=== PATIENT | female | born 1940 | race Caucasian/White ===

== ENCOUNTER → 2016-06-20 | Outpatient (CLI) | payer MEDICARE ==
[~2016-06-20] MED LIST: CALCIUM + D 6001 TAB PO; FOSAMAX70 MG PO; HCTZ 25MG25 MG PO; HUMALOG 75/2100 U/ML SQ; KEPPRA250 MG PO; KEPPRA500 MG PO; LEVOTHYROXINE0.05 MG PO; LOW DOSE ASPIRI81 MG PO; LUTEIN20 M2 PO; MOBIC7.5 M1 PO; OSTEO BI-FLEX1 TAB PO; PIOGLITAZONE HC30 MG PO; PRECOSE PO; PRECOSE50 M1 PO; RITALIN LA10 MG PO; TESSALON PERLE200 MG PO; TYLENOL 500MG500 MG PO; ULTRAM 50MG TAB50 MG PO
[2016-06-20 09:10] VITALS: BP 131/77
== END ==
LOC: AMSURD 08:55
DX: Z01.810 Encounter for preprocedural cardiovascular examination (principal); M51.36 Other intervertebral disc degeneration, lumbar region; I10 Essential (primary) hypertension

== ENCOUNTER → 2016-06-21 | Outpatient (CLI) | payer MEDICARE | LOC: LAB 10:12 | DX: Z01.812 Encounter for preprocedural laboratory examination (principal); I10 Essential (primary) hypertension; M51.36 Other intervertebral disc degeneration, lumbar region ==

== ENCOUNTER 2016-07-09 02:09 | Emergency (ER) | payer MEDICARE ==
[~2016-07-09 02:09] MED LIST changes: -PIOGLITAZONE HC30 MG PO; -PRECOSE PO; -ULTRAM 50MG TAB50 MG PO
[2016-07-09] MEDS ORDERED: ULTRAM 50MG TAB50 MG PO (02:31)
[2016-07-10] MEDS ORDERED: PRECOSE PO (13:02)
== END 2016-07-09 04:06 | disposition home or self-care (01) ==
LOC: ED 02:09
DX: G40.209 Localization-related (focal) (partial) symptomatic epilepsy and epileptic syndromes with complex partial seizures, not intractable, without status epilepticus (principal)
CPT/HCPCS: J2060; J2405

== ENCOUNTER 2016-07-10 12:38 | Emergency (ER) | payer MEDICARE ==
[~2016-07-10 12:38] MED LIST changes: +ULTRAM 50MG TAB50 MG PO
[2016-07-10] MEDS ORDERED: PRECOSE PO (13:02)
[2016-07-10 17:17] VITALS: BP 135/59
== END 2016-07-10 16:27 | disposition short-term general hospital (02) ==
LOC: ED 12:38
DX: E87.1 Hypo-osmolality and hyponatremia (principal); I95.1 Orthostatic hypotension; E11.9 Type 2 diabetes mellitus without complications; G40.909 Epilepsy, unspecified, not intractable, without status epilepticus
CPT/HCPCS: A4353; J1885; J2405; J7030

== ENCOUNTER 2016-07-15 12:31 | Inpatient (IN) | payer MEDICARE ==
[~2016-07-15 12:31] MED LIST changes: +PRECOSE PO
[2016-07-15 15:24] VITALS: BP 150/68
[2016-07-15 18:43] VITALS: BP 153/69
[2016-07-16 06:21] VITALS: BP 158/71
[2016-07-16 18:30] VITALS: BP 132/52
[2016-07-17 06:24] VITALS: BP 130/24
[2016-07-17] MEDS ORDERED: KEPPRA250 MG PO (09:57)
[2016-07-17] MEDS ORDERED: PIOGLITAZONE HC30 MG PO (12:04)
== END 2016-07-17 12:30 | disposition home or self-care (01) | DRG 948 ==
LOC: MED/SURG 12:31
PROVIDERS: ADMIT Medical Genetics Clinical Genetics (M.D.)
DX: R53.1 Weakness (principal); E87.1 Hypo-osmolality and hyponatremia; J00 Acute nasopharyngitis [common cold]; M51.36 Other intervertebral disc degeneration, lumbar region; G40.909 Epilepsy, unspecified, not intractable, without status epilepticus; M81.0 Age-related osteoporosis without current pathological fracture; G47.33 Obstructive sleep apnea (adult) (pediatric); E11.9 Type 2 diabetes mellitus without complications; E78.5 Hyperlipidemia, unspecified; I10 Essential (primary) hypertension; E03.9 Hypothyroidism, unspecified; B97.29 Other coronavirus as the cause of diseases classified elsewhere; Z79.4 Long term (current) use of insulin; Z79.82 Long term (current) use of aspirin
CPT/HCPCS: J1650; J1815

== ENCOUNTER 2016-07-22 12:53 | Outpatient (RCR) | payer MEDICARE ==
[~2016-07-22 12:53] MED LIST changes: +PIOGLITAZONE HC30 MG PO
== END 2016-08-07 10:29 | disposition home or self-care (01) ==
LOC: PT 12:53
DX: M51.36 Other intervertebral disc degeneration, lumbar region (principal)

== ENCOUNTER → 2016-08-16 | Outpatient (CLI) | payer MEDICARE ==
[2016-08-16 10:05] VITALS: BP 160/70
== END ==
LOC: AMSURD 09:30
DX: Z01.818 Encounter for other preprocedural examination (principal); I10 Essential (primary) hypertension; M51.36 Other intervertebral disc degeneration, lumbar region

== ENCOUNTER → 2016-08-27 | Outpatient (CLI) | payer MEDICARE | LOC: LAB 08:36 | DX: E78.2 Mixed hyperlipidemia (principal) ==

== ENCOUNTER → 2016-10-16 | Outpatient (CLI) | payer MEDICARE ==
[2016-08-16 10:05] VITALS: BP 160/70
== END ==
LOC: LAB 10:51
DX: E11.9 Type 2 diabetes mellitus without complications (principal); E87.1 Hypo-osmolality and hyponatremia

== ENCOUNTER → 2016-11-20 | Outpatient (CLI) | payer MEDICARE, BC ==
[2016-08-16 10:05] VITALS: BP 160/70
== END ==
LOC: LAB 12:00
DX: E87.1 Hypo-osmolality and hyponatremia (principal); I10 Essential (primary) hypertension; R60.9 Edema, unspecified; E11.8 Type 2 diabetes mellitus with unspecified complications

== ENCOUNTER → 2017-03-21 | Outpatient (CLI) | payer MEDICARE, BC ==
[2016-08-16 10:05] VITALS: BP 160/70
== END ==
LOC: LAB 07:35
DX: E11.9 Type 2 diabetes mellitus without complications (principal); Z79.4 Long term (current) use of insulin

== ENCOUNTER → 2017-03-25 | Outpatient (CLI) | payer MEDICARE, BC ==
[2016-08-16 10:05] VITALS: BP 160/70
== END ==
LOC: LAB 15:27
DX: Z00.00 Encounter for general adult medical examination without abnormal findings (principal); E03.4 Atrophy of thyroid (acquired)

== ENCOUNTER → 2017-05-22 | Outpatient (CLI) | payer BC ==
[2016-08-16 10:05] VITALS: BP 160/70
== END ==
LOC: RAD 08:28
DX: Z12.31 Encounter for screening mammogram for malignant neoplasm of breast (principal)
CPT/HCPCS: G0202

== ENCOUNTER → 2017-10-02 | Outpatient (CLI) | payer BC ==
[2016-08-16 10:05] VITALS: BP 160/70
[2017-10-02 09:09] LABS: HEMATOCRIT 35.5 % (37.0-47.0); HEMOGLOBIN 11.7 g/dL (12.5-16.0); MEAN CELL VOLUME 92 fl (78-100); MEAN CORPUSCULAR HEMOGLOBIN 30 pg (27-31); MEAN CORPUSCULAR HGB CONC 33 g/dL (33-37); MEAN PLATELET VOLUME 9.4 fl (7.4-10.4); PLATELET COUNT 221 K/mm3 (130-400); RED BLOOD COUNT 3.87 M/mm3 (4.10-5.30); RED CELL DISTRIBUTION WIDTH 13.8 % (11.5-14.5); WHITE BLOOD COUNT 5.4 K/mm3 (4.8-10.8)
[2017-10-02 09:25] LABS: ALBUMIN 3.9 g/dL (3.5-5.0); CALCIUM 9.5 mg/dL (8.4-10.2); LYMPHOCYTE 35 % (20-51); MONOCYTE 14 % (3-10); NEUTROPHILS 48 % (42-75); POTASSIUM 4.4 mmol/L (3.6-5.0); TOTAL BILIRUBIN 0.4 mg/dL (0.2-1.3); TOTAL PROTEIN 7.5 g/dL (6.3-8.2)
== END ==
LOC: LAB 08:54
PROVIDERS: Nurse Practitioner Family
DX: Z00.00 Encounter for general adult medical examination without abnormal findings (principal); I10 Essential (primary) hypertension; E03.9 Hypothyroidism, unspecified; E11.9 Type 2 diabetes mellitus without complications; E78.5 Hyperlipidemia, unspecified; Z88.2 Allergy status to sulfonamides

== ENCOUNTER → 2017-10-08 | Outpatient (CLI) | payer MEDICARE ==
[2016-08-16 10:05] VITALS: BP 160/70
[2017-10-08 11:41] LABS: EOS # 0.1 (0.04-0.40); EOS % 1.1 % (1.0-5.0); HEMATOCRIT 37.3 % (37.0-47.0); LYMPH# 1.9 (1.50-4.00); MEAN CELL VOLUME 92 fl (78-100); MEAN CORPUSCULAR HEMOGLOBIN 30 pg (27-31); MEAN CORPUSCULAR HGB CONC 32 g/dL (33-37); MEAN PLATELET VOLUME 10.1 fl (7.4-10.4); MONO # 0.7 (0.20-0.80); NEU # 3.8 (1.40-6.50); PLATELET COUNT 226 K/mm3 (130-400); RED BLOOD COUNT 4.04 M/mm3 (4.10-5.30); RED CELL DISTRIBUTION WIDTH 13.8 % (11.5-14.5); WHITE BLOOD COUNT 6.5 K/mm3 (4.8-10.8)
[2017-10-08 12:00] LABS: BUN/CREATININE RATIO 24.2 (6.0-26.0); CALCIUM 9.9 mg/dL (8.4-10.2); POTASSIUM 4.4 mmol/L (3.6-5.0); TOTAL BILIRUBIN 0.3 mg/dL (0.2-1.3); TOTAL PROTEIN 7.7 g/dL (6.3-8.2)
== END ==
LOC: LAB 11:10
PROVIDERS: Nurse Practitioner Family
DX: E11.9 Type 2 diabetes mellitus without complications (principal); R23.2 Flushing; I10 Essential (primary) hypertension; R60.9 Edema, unspecified; Z88.2 Allergy status to sulfonamides

== ENCOUNTER → 2018-01-26 | Outpatient (CLI) | payer MEDICARE ==
[2016-08-16 10:05] VITALS: BP 160/70
== END ==
LOC: RAD 09:11
DX: M46.1 Sacroiliitis, not elsewhere classified (principal); M51.36 Other intervertebral disc degeneration, lumbar region; Z98.1 Arthrodesis status; Z96.7 Presence of other bone and tendon implants

== ENCOUNTER → 2018-06-02 | Outpatient (CLI) | payer BC ==
[2018-02-09 18:35] VITALS: BP 136/61
[~2018-06-02] MED LIST changes: +ZOFRAN ODT4 MG PO
== END ==
LOC: MAMMO 09:58
DX: Z13.820 Encounter for screening for osteoporosis (principal); M81.0 Age-related osteoporosis without current pathological fracture; M85.851 Other specified disorders of bone density and structure, right thigh; M85.832 Other specified disorders of bone density and structure, left forearm

== ENCOUNTER → 2018-06-02 | Outpatient (CLI) | payer BC ==
[2018-02-09 18:35] VITALS: BP 136/61
== END ==
LOC: MAMMO 05-19 10:00
DX: Z12.31 Encounter for screening mammogram for malignant neoplasm of breast (principal)

== ENCOUNTER 2018-08-18 11:00 | Outpatient (RCR) | payer MEDICARE ==
[2018-02-09 18:35] VITALS: BP 136/61
== END 2018-08-18 11:30 | disposition home or self-care (01) ==
LOC: PT 11:00
DX: M51.36 Other intervertebral disc degeneration, lumbar region (principal); M43.16 Spondylolisthesis, lumbar region; M47.816 Spondylosis without myelopathy or radiculopathy, lumbar region; M51.9 Unspecified thoracic, thoracolumbar and lumbosacral intervertebral disc disorder
CPT/HCPCS: G8981-GP; G8982-GP

== ENCOUNTER → 2018-10-07 | Outpatient (CLI) | payer MEDICARE ==
[2018-02-09 18:35] VITALS: BP 136/61
[2018-10-07 08:27] LABS: HEMATOCRIT 35.2 % (37.0-47.0); HEMOGLOBIN 11.5 g/dL (12.5-16.0); MEAN CELL VOLUME 93 fl (78-100); MEAN CORPUSCULAR HEMOGLOBIN 31 pg (27-31); MEAN CORPUSCULAR HGB CONC 33 g/dL (33-37); MEAN PLATELET VOLUME 9.9 fl (7.4-10.4); PLATELET COUNT 257 K/mm3 (130-400); RED BLOOD COUNT 3.77 M/mm3 (4.10-5.30); RED CELL DISTRIBUTION WIDTH 12.7 % (11.5-14.5); WHITE BLOOD COUNT 5.7 K/mm3 (4.8-10.8)
[2018-10-07 09:00] LABS: CALCIUM 9.2 mg/dL (8.4-10.2); TOTAL BILIRUBIN 0.5 mg/dL (0.2-1.3); TOTAL PROTEIN 7.3 g/dL (6.3-8.2)
[2018-10-07 09:10] LABS: LYMPHOCYTE 32 % (20-51); MONOCYTE 13 % (3-10); NEUTROPHILS 50 % (42-75)
== END ==
LOC: LAB 07:23
PROVIDERS: Physician Assistant
DX: M51.36 Other intervertebral disc degeneration, lumbar region (principal); E78.5 Hyperlipidemia, unspecified; E11.9 Type 2 diabetes mellitus without complications; E03.9 Hypothyroidism, unspecified; I10 Essential (primary) hypertension

== ENCOUNTER → 2018-10-15 | Outpatient (CLI) | payer MEDICARE ==
[2018-02-09 18:35] VITALS: BP 136/61
== END ==
LOC: RAD 10:25
DX: R10.9 Unspecified abdominal pain (principal); Z98.1 Arthrodesis status

== ENCOUNTER → 2018-11-19 | Outpatient (CLI) | payer MEDICARE ==
[2018-02-09 18:35] VITALS: BP 136/61
== END ==
LOC: RAD 14:57
DX: Q78.2 Osteopetrosis (principal); M15.9 Polyosteoarthritis, unspecified; M25.551 Pain in right hip; K59.09 Other constipation; G89.29 Other chronic pain; R10.31 Right lower quadrant pain

== ENCOUNTER 2019-02-11 11:00 | Outpatient (RCR) | payer MEDICARE ==
[2018-02-09 18:35] VITALS: BP 136/61
== END 2019-02-11 11:30 ==
LOC: PT 11:00
DX: M96.1 Postlaminectomy syndrome, not elsewhere classified (principal)

== ENCOUNTER → 2019-04-22 | Outpatient (CLI) | payer MEDICARE ==
[2018-02-09 18:35] VITALS: BP 136/61
[2019-04-22 12:41] LABS: ALBUMIN 4.1 g/dL (3.4-4.8)
[2019-04-22 12:44] LABS: TOTAL PROTEIN 7.6 g/dL (6.2-8.1)
[2019-04-22 12:46] LABS: TOTAL BILIRUBIN 0.6 mg/dL (0.2-1.2)
== END ==
LOC: LAB 11:36
PROVIDERS: Physician Assistant
DX: E11.9 Type 2 diabetes mellitus without complications (principal); E78.5 Hyperlipidemia, unspecified; G40.909 Epilepsy, unspecified, not intractable, without status epilepticus; M81.0 Age-related osteoporosis without current pathological fracture; M47.816 Spondylosis without myelopathy or radiculopathy, lumbar region; M43.16 Spondylolisthesis, lumbar region; I10 Essential (primary) hypertension; E03.9 Hypothyroidism, unspecified

== ENCOUNTER → 2019-06-03 | Outpatient (CLI) | payer MEDICARE ==
[2018-02-09 18:35] VITALS: BP 136/61
== END ==
LOC: MAMMO 09:54
DX: Z12.31 Encounter for screening mammogram for malignant neoplasm of breast (principal)

== ENCOUNTER → 2019-11-05 | Outpatient (CLI) | payer MEDICARE ==
[2018-02-09 18:35] VITALS: BP 136/61
[2019-11-05 10:00] LABS: HEMATOCRIT 37.2 % (37.0-47.0); HEMOGLOBIN 12.4 g/dL (12.5-16.0); MEAN CELL VOLUME 91 fl (78-100); MEAN CORPUSCULAR HEMOGLOBIN 31 pg (27-31); MEAN CORPUSCULAR HGB CONC 33 g/dL (33-37); MEAN PLATELET VOLUME 9.5 fl (7.4-10.4); PLATELET COUNT 241 K/mm3 (130-400); RED BLOOD COUNT 4.07 M/mm3 (4.10-5.30); RED CELL DISTRIBUTION WIDTH 13.1 % (11.5-14.5); WHITE BLOOD COUNT 6.5 K/mm3 (4.8-10.8)
[2019-11-05 10:17] LABS: ALBUMIN 4.3 g/dL (3.4-4.8); POTASSIUM 3.7 mmol/L (3.5-5.1)
[2019-11-05 10:18] LABS: CALCIUM 9.9 mg/dL (8.3-10.5)
[2019-11-05 10:20] LABS: TOTAL PROTEIN 7.9 g/dL (6.2-8.1)
[2019-11-05 10:21] LABS: TOTAL BILIRUBIN 0.5 mg/dL (0.2-1.2)
[2019-11-05 11:18] LABS: LYMPHOCYTE 32 % (20-51); MONOCYTE 16 % (3-10); NEUTROPHILS 49 % (42-75)
== END ==
LOC: LAB 09:45
PROVIDERS: Physician Assistant
DX: Z00.00 Encounter for general adult medical examination without abnormal findings (principal); E11.9 Type 2 diabetes mellitus without complications; G40.909 Epilepsy, unspecified, not intractable, without status epilepticus; M81.0 Age-related osteoporosis without current pathological fracture; G47.33 Obstructive sleep apnea (adult) (pediatric); E78.5 Hyperlipidemia, unspecified; M51.36 Other intervertebral disc degeneration, lumbar region; I10 Essential (primary) hypertension; E03.9 Hypothyroidism, unspecified

== ENCOUNTER → 2020-04-05 | Outpatient (CLI) | payer MEDICARE ==
[2020-04-01 15:28] VITALS: BP 149/74
[~2020-04-05] MED LIST changes: +TRAMADOL 50 MG TAB PO
[2020-04-05 17:13] LABS: HEMATOCRIT 32.2 % (37.0-47.0); HEMOGLOBIN 10.6 g/dL (12.5-16.0); MEAN CELL VOLUME 92 fl (78-100); MEAN CORPUSCULAR HEMOGLOBIN 30 pg (27-31); MEAN CORPUSCULAR HGB CONC 33 g/dL (33-37); MEAN PLATELET VOLUME 9.1 fl (7.4-10.4); PLATELET COUNT 249 K/mm3 (130-400); RED CELL DISTRIBUTION WIDTH 12.9 % (11.5-14.5); WHITE BLOOD COUNT 7.1 K/mm3 (4.8-10.8)
[2020-04-05 17:15] LABS: ALBUMIN 3.9 g/dL (3.4-4.8)
[2020-04-05 17:16] LABS: CALCIUM 8.7 mg/dL (8.3-10.5)
[2020-04-05 17:17] LABS: TOTAL PROTEIN 6.8 g/dL (6.2-8.1)
[2020-04-05 17:19] LABS: TOTAL BILIRUBIN 0.5 mg/dL (0.2-1.2)
[2020-04-05 17:23] LABS: LYMPHOCYTE 26 % (20-51); MONOCYTE 12 % (3-10); NEUTROPHILS 60 % (42-75)
== END ==
LOC: LAB 16:13
PROVIDERS: Physician Assistant
DX: E03.9 Hypothyroidism, unspecified (principal); E11.9 Type 2 diabetes mellitus without complications; E78.5 Hyperlipidemia, unspecified; I10 Essential (primary) hypertension

== ENCOUNTER 2020-06-06 13:30 | Outpatient (RCR) | payer MEDICARE ==
[2020-04-01 15:28] VITALS: BP 149/74
== END 2020-06-27 12:30 ==
LOC: PT
DX: M54.5 Low back pain (principal); M25.512 Pain in left shoulder

== ENCOUNTER → 2020-06-14 | Outpatient (CLI) | payer MEDICARE ==
[2020-04-01 15:28] VITALS: BP 149/74
== END ==
LOC: MAMMO 06-13 09:15
DX: Z12.31 Encounter for screening mammogram for malignant neoplasm of breast (principal)

== ENCOUNTER → 2020-06-14 | Outpatient (CLI) | payer MEDICARE ==
[2020-04-01 15:28] VITALS: BP 149/74
== END ==
LOC: MAMMO 06-13 10:00 → RAD 10:00 → MAMMO 10:45
DX: Z13.820 Encounter for screening for osteoporosis (principal)

== ENCOUNTER 2020-06-20 10:30 | Outpatient (RCR) | payer MEDICARE ==
[2020-04-01 15:28] VITALS: BP 149/74
== END 2020-06-27 12:30 | disposition home or self-care (01) ==
LOC: PT 10:30
DX: M54.5 Low back pain (principal); M25.512 Pain in left shoulder

== ENCOUNTER 2020-08-18 16:09 | Emergency (ER) | payer MEDICARE ==
[2020-08-18 16:54] LABS: HEMATOCRIT 39.4 % (37.0-47.0); MEAN CELL VOLUME 91 fl (78-100); MEAN CORPUSCULAR HEMOGLOBIN 30 pg (27-31); MEAN CORPUSCULAR HGB CONC 33 g/dL (33-37); MEAN PLATELET VOLUME 9.8 fl (7.4-10.4); PLATELET COUNT 210 K/mm3 (130-400); RED BLOOD COUNT 4.31 M/mm3 (4.10-5.30); RED CELL DISTRIBUTION WIDTH 12.6 % (11.5-14.5); WHITE BLOOD COUNT 9.5 K/mm3 (4.8-10.8)
[2020-08-18 17:03] LABS: ALBUMIN 4.1 g/dL (3.4-4.8)
[2020-08-18 17:04] LABS: POTASSIUM 3.4 mmol/L (3.5-5.1)
[2020-08-18 17:05] LABS: CALCIUM 9.2 mg/dL (8.3-10.5)
[2020-08-18 17:06] LABS: TOTAL PROTEIN 7.7 g/dL (6.2-8.1)
[2020-08-18 17:08] LABS: TOTAL BILIRUBIN 0.5 mg/dL (0.2-1.2)
[2020-08-18 17:12] LABS: LYMPHOCYTE 12 % (20-51); MONOCYTE 10 % (3-10)
[2020-08-18 17:13] LABS: NEUTROPHILS 77 % (42-75)
[2020-08-18 22:04] LABS: PH-URINE 6.5 (5.0 - 8.0); URINE APPEARANCE CLEAR; URINE BILIRUBIN NEGATIVE (NEGATIVE); URINE BLOOD TRACE (NEGATIVE); URINE COLOR YELLOW; URINE GLUCOSE NEGATIVE (NEGATIVE); URINE KETONE 1+ (NEGATIVE); URINE LEUKOCYTE ESTERASE NEGATIVE (NEGATIVE); URINE NITRATE NEGATIVE (NEGATIVE); URINE PROTEIN(semi-quant) NEGATIVE (NEGATIVE); URINE UROBILINOGEN NORMAL (NORMAL); URINE WBC 0-1 /hpf (0-3)
[2020-08-19 08:59] LABS: POTASSIUM 4.4 mmol/L (3.5-5.1)
[2020-08-19 09:01] LABS: CALCIUM 8.8 mg/dL (8.3-10.5)
[2020-08-19 09:38] VITALS: BP 173/96
== END 2020-08-19 09:50 | disposition home or self-care (01) ==
LOC: ED 16:09
PROVIDERS: Family Medicine; Nurse Practitioner
DX: R53.81 Other malaise (principal); R53.83 Other fatigue; I95.1 Orthostatic hypotension; E87.1 Hypo-osmolality and hyponatremia; E87.6 Hypokalemia; E86.9 Volume depletion, unspecified; E11.9 Type 2 diabetes mellitus without complications; I10 Essential (primary) hypertension; G40.909 Epilepsy, unspecified, not intractable, without status epilepticus; Z79.4 Long term (current) use of insulin; Z79.82 Long term (current) use of aspirin
CPT/HCPCS: J1815; J3480; J7030

== ENCOUNTER → 2020-09-05 | Outpatient (CLI) | payer MEDICARE ==
[2020-08-19 09:38] VITALS: BP 173/96
[2020-09-05 11:10] LABS: POTASSIUM 5.1 mmol/L (3.5-5.1)
[2020-09-05 11:11] LABS: CALCIUM 9.5 mg/dL (8.3-10.5)
== END ==
LOC: LAB 10:34
PROVIDERS: Physician Assistant
DX: E87.1 Hypo-osmolality and hyponatremia (principal)

== ENCOUNTER → 2020-11-07 | Outpatient (CLI) | payer MEDICARE ==
[2020-11-07 08:37] LABS: BASO # 0.03 (0.02-0.10); EOS # 0.22 (0.04-0.40); EOS % 3.2 % (1.0-5.0); HEMATOCRIT 34.8 % (37.0-47.0); HEMOGLOBIN 11.3 g/dL (12.5-16.0); LYMPH# 1.77 (1.50-4.00); MEAN CELL VOLUME 91 fl (78-100); MEAN CORPUSCULAR HEMOGLOBIN 29 pg (27-31); MEAN CORPUSCULAR HGB CONC 33 g/dL (33-37); MEAN PLATELET VOLUME 9.7 fl (7.4-10.4); MONO # 0.75 (0.20-0.80); NEU # 4.11 (1.40-6.50); PLATELET COUNT 288 K/mm3 (130-400); RED BLOOD COUNT 3.84 M/mm3 (4.10-5.30); RED CELL DISTRIBUTION WIDTH 12.7 % (11.5-14.5); WHITE BLOOD COUNT 6.9 K/mm3 (4.8-10.8)
[2020-11-07 08:46] LABS: ALBUMIN 3.7 g/dL (3.4-4.8)
[2020-11-07 08:47] LABS: CALCIUM 9.3 mg/dL (8.3-10.5)
[2020-11-07 08:48] LABS: TOTAL PROTEIN 7.1 g/dL (6.2-8.1)
[2020-11-07 08:50] LABS: TOTAL BILIRUBIN 0.4 mg/dL (0.2-1.2)
== END ==
LOC: LAB 08:15
PROVIDERS: Physician Assistant
DX: I10 Essential (primary) hypertension (principal); E78.2 Mixed hyperlipidemia; E11.9 Type 2 diabetes mellitus without complications; E03.4 Atrophy of thyroid (acquired)

== ENCOUNTER → 2020-11-09 | Outpatient (CLI) | payer MEDICARE | LOC: RAD 11:28 | DX: M48.56XA Collapsed vertebra, not elsewhere classified, lumbar region, initial encounter for fracture (principal); M41.86 Other forms of scoliosis, lumbar region; Z98.1 Arthrodesis status ==

== ENCOUNTER → 2020-11-14 | Outpatient (CLI) | payer MEDICARE | LOC: RAD 13:57 | DX: M17.11 Unilateral primary osteoarthritis, right knee (principal) ==

== ENCOUNTER → 2020-11-16 | Outpatient (CLI) | payer MEDICARE | LOC: RAD 14:16 | DX: M43.26 Fusion of spine, lumbar region (principal); M48.061 Spinal stenosis, lumbar region without neurogenic claudication; M47.816 Spondylosis without myelopathy or radiculopathy, lumbar region; Z98.1 Arthrodesis status; Z98.890 Other specified postprocedural states | CPT/HCPCS: A9585 ==

== ENCOUNTER → 2021-03-08 | Outpatient (CLI) | payer MEDICARE | LOC: RAD 12:11 | DX: M17.12 Unilateral primary osteoarthritis, left knee (principal) ==

== ENCOUNTER → 2021-03-21 | Outpatient (CLI) | payer MEDICARE | LOC: LAB 14:57 | DX: N39.0 Urinary tract infection, site not specified (principal) ==

== ENCOUNTER → 2021-04-17 | Outpatient (CLI) | payer MEDICARE ==
[2021-04-17 11:14] LABS: BASO # 0.02 K/mm3 (0.02-0.10); EOS # 0.12 K/mm3 (0.04-0.40); EOS % 1.5 % (1.0-5.0); HEMATOCRIT 39.3 % (37.0-47.0); HEMOGLOBIN 12.7 g/dL (12.5-16.0); LYMPH# 1.95 K/mm3 (1.50-4.00); MEAN CELL VOLUME 95 fl (78-100); MEAN CORPUSCULAR HEMOGLOBIN 31 pg (27-31); MEAN CORPUSCULAR HGB CONC 32 g/dL (33-37); MEAN PLATELET VOLUME 9.7 fl (7.4-10.4); MONO # 0.86 K/mm3 (0.20-0.80); NEU # 5.02 K/mm3 (1.40-6.50); PLATELET COUNT 273 K/mm3 (130-400); RED BLOOD COUNT 4.15 M/mm3 (4.10-5.30); RED CELL DISTRIBUTION WIDTH 12.9 % (11.5-14.5)
[2021-04-17 11:21] LABS: ALBUMIN 3.8 g/dL (3.4-4.8); POTASSIUM 4.8 mmol/L (3.5-5.1)
[2021-04-17 11:22] LABS: CALCIUM 10.4 mg/dL (8.3-10.5)
[2021-04-17 11:24] LABS: TOTAL PROTEIN 7.3 g/dL (6.2-8.1)
[2021-04-17 11:25] LABS: TOTAL BILIRUBIN 0.5 mg/dL (0.2-1.2)
== END ==
LOC: LAB 10:46
PROVIDERS: Physician Assistant
DX: E11.9 Type 2 diabetes mellitus without complications (principal); I10 Essential (primary) hypertension

== ENCOUNTER → 2021-06-19 | Outpatient (CLI) | payer MEDICARE ==
[~2021-06-19] MED LIST changes: +AMOXICILLIN AND1 TA2 PO; +BENZONATATE200 MG PO; +IPRATROPIUM BROM3 M1 IH; +PROTONIX20 M1 PO
== END ==
LOC: MAMMO 10:00
DX: Z12.31 Encounter for screening mammogram for malignant neoplasm of breast (principal)

== ENCOUNTER → 2021-10-10 | Outpatient (CLI) | payer MEDICARE ==
[~2021-10-10] MED LIST changes: -AMOXICILLIN AND1 TA2 PO; -BENZONATATE200 MG PO; -IPRATROPIUM BROM3 M1 IH; -PROTONIX20 M1 PO
== END ==
LOC: AMSURD 08:36
DX: M96.1 Postlaminectomy syndrome, not elsewhere classified (principal)

== ENCOUNTER → 2021-10-26 | Outpatient (CLI) | payer MEDICARE ==
[2021-10-26 12:17] LABS: ALBUMIN 3.6 g/dL (3.4-4.8); BASO # 0.04 K/mm3 (0.02-0.10); EOS # 0.23 K/mm3 (0.04-0.40); EOS % 2.6 % (1.0-5.0); HEMATOCRIT 34.8 % (37.0-47.0); HEMOGLOBIN 11.4 g/dL (12.5-16.0); MEAN CELL VOLUME 94 fl (78-100); MEAN CORPUSCULAR HEMOGLOBIN 31 pg (27-31); MEAN CORPUSCULAR HGB CONC 33 g/dL (33-37); MEAN PLATELET VOLUME 9.3 fl (7.4-10.4); MONO # 0.89 K/mm3 (0.20-0.80); NEU # 5.93 K/mm3 (1.40-6.50); PLATELET COUNT 316 K/mm3 (130-400); RED BLOOD COUNT 3.69 M/mm3 (4.10-5.30); RED CELL DISTRIBUTION WIDTH 11.9 % (11.5-14.5); WHITE BLOOD COUNT 8.9 K/mm3 (4.8-10.8)
[2021-10-26 12:18] LABS: POTASSIUM 4.1 mmol/L (3.5-5.1)
[2021-10-26 12:19] LABS: CALCIUM 9.9 mg/dL (8.3-10.5)
[2021-10-26 12:22] LABS: TOTAL BILIRUBIN 0.3 mg/dL (0.2-1.2)
== END ==
LOC: LAB 11:25
PROVIDERS: Nurse Practitioner
DX: M79.89 Other specified soft tissue disorders (principal)

== ENCOUNTER → 2021-12-11 | Outpatient (CLI) | payer MEDICARE ==
[2021-12-11 10:37] LABS: BASO # 0.04 K/mm3 (0.02-0.10); EOS # 0.09 K/mm3 (0.04-0.40); EOS % 1.3 % (1.0-5.0); HEMATOCRIT 37.9 % (37.0-47.0); HEMOGLOBIN 12.5 g/dL (12.5-16.0); LYMPH# 2.09 K/mm3 (1.50-4.00); MEAN CELL VOLUME 94 fl (78-100); MEAN CORPUSCULAR HEMOGLOBIN 31 pg (27-31); MEAN CORPUSCULAR HGB CONC 33 g/dL (33-37); MEAN PLATELET VOLUME 10.2 fl (7.4-10.4); MONO # 0.73 K/mm3 (0.20-0.80); NEU # 3.73 K/mm3 (1.40-6.50); PLATELET COUNT 211 K/mm3 (130-400); RED BLOOD COUNT 4.03 M/mm3 (4.10-5.30); RED CELL DISTRIBUTION WIDTH 12.6 % (11.5-14.5); WHITE BLOOD COUNT 6.7 K/mm3 (4.8-10.8)
[2021-12-11 10:44] LABS: ALBUMIN 4.1 g/dL (3.4-4.8); POTASSIUM 4.6 mmol/L (3.5-5.1)
[2021-12-11 10:45] LABS: PH-URINE 6.5 (5.0 - 8.0); URINE APPEARANCE CLEAR; URINE BILIRUBIN NEGATIVE (NEGATIVE); URINE BLOOD NEGATIVE (NEGATIVE); URINE COLOR YELLOW; URINE GLUCOSE NEGATIVE (NEGATIVE); URINE KETONE NEGATIVE (NEGATIVE); URINE LEUKOCYTE ESTERASE NEGATIVE (NEGATIVE); URINE NITRATE NEGATIVE (NEGATIVE); URINE PROTEIN(semi-quant) TRACE (NEGATIVE); URINE UROBILINOGEN NORMAL (NORMAL); URINE WBC 0-1 /hpf (0-3)
[2021-12-11 10:46] LABS: TOTAL PROTEIN 7.1 g/dL (6.2-8.1)
[2021-12-11 10:48] LABS: TOTAL BILIRUBIN 0.5 mg/dL (0.2-1.2)
== END ==
LOC: LAB 09:54
PROVIDERS: Physician Assistant
DX: Z00.00 Encounter for general adult medical examination without abnormal findings (principal); E03.4 Atrophy of thyroid (acquired); I10 Essential (primary) hypertension; M17.0 Bilateral primary osteoarthritis of knee; E78.2 Mixed hyperlipidemia; E11.9 Type 2 diabetes mellitus without complications; M48.50XS Collapsed vertebra, not elsewhere classified, site unspecified, sequela of fracture; M51.36 Other intervertebral disc degeneration, lumbar region; M51.9 Unspecified thoracic, thoracolumbar and lumbosacral intervertebral disc disorder; M81.0 Age-related osteoporosis without current pathological fracture; N32.81 Overactive bladder; K90.9 Intestinal malabsorption, unspecified

== ENCOUNTER 2022-01-17 09:56 | Outpatient (RCR) | payer MEDICARE | END 2022-02-13 | disposition still patient (30) | LOC: PT | DX: M54.50 Low back pain, unspecified (principal) ==

== ENCOUNTER → 2022-01-29 | Outpatient (CLI) | payer MEDICARE ==
[2022-01-29 12:15] LABS: BASO # 0.02 K/mm3 (0.02-0.10); EOS # 0.12 K/mm3 (0.04-0.40); EOS % 1.4 % (1.0-5.0); HEMATOCRIT 37.5 % (37.0-47.0); LYMPH# 2.01 K/mm3 (1.50-4.00); MEAN CELL VOLUME 96 fl (78-100); MEAN CORPUSCULAR HEMOGLOBIN 31 pg (27-31); MEAN CORPUSCULAR HGB CONC 32 g/dL (33-37); MEAN PLATELET VOLUME 10.2 fl (7.4-10.4); MONO # 1.11 K/mm3 (0.20-0.80); NEU # 5.11 K/mm3 (1.40-6.50); PLATELET COUNT 207 K/mm3 (130-400); RED BLOOD COUNT 3.89 M/mm3 (4.10-5.30); RED CELL DISTRIBUTION WIDTH 12.8 % (11.5-14.5); WHITE BLOOD COUNT 8.4 K/mm3 (4.8-10.8)
[2022-01-29 12:23] LABS: ALBUMIN 3.9 g/dL (3.4-4.8); POTASSIUM 4.8 mmol/L (3.5-5.1)
[2022-01-29 12:24] LABS: CALCIUM 9.9 mg/dL (8.3-10.5)
[2022-01-29 12:25] LABS: TOTAL PROTEIN 7.4 g/dL (6.2-8.1)
[2022-01-29 12:27] LABS: TOTAL BILIRUBIN 0.7 mg/dL (0.2-1.2)
== END ==
LOC: LAB 11:49
PROVIDERS: Physician Assistant
DX: E03.4 Atrophy of thyroid (acquired) (principal); E11.9 Type 2 diabetes mellitus without complications; I10 Essential (primary) hypertension; R53.83 Other fatigue; K90.9 Intestinal malabsorption, unspecified; Z20.822 Contact with and (suspected) exposure to COVID-19

== ENCOUNTER 2022-02-19 10:00 | Outpatient (RCR) | payer MEDICARE | END 2022-03-12 16:27 | disposition still patient (30) | LOC: PT 10:00 | DX: M54.50 Low back pain, unspecified (principal) ==

== ENCOUNTER → 2022-02-19 | Outpatient (CLI) | payer MEDICARE | LOC: RAD 15:26 | DX: M41.86 Other forms of scoliosis, lumbar region (principal); M15.9 Polyosteoarthritis, unspecified; Z98.890 Other specified postprocedural states ==

== ENCOUNTER → 2022-07-16 | Outpatient (CLI) | payer MEDICARE ==
[~2022-07-16] MED LIST changes: +AMOXICILLIN AND1 TA2 PO; +BENZONATATE200 MG PO; +IPRATROPIUM BROM3 M1 IH; +PROTONIX20 M1 PO
== END ==
LOC: MAMMO 07-10 14:30
DX: Z12.31 Encounter for screening mammogram for malignant neoplasm of breast (principal); M81.0 Age-related osteoporosis without current pathological fracture

== ENCOUNTER → 2022-09-12 | Outpatient (CLI) | payer MEDICARE ==
[2022-09-12 09:46] LABS: BASO # 0.02 K/mm3 (0.02-0.10); EOS # 0.27 K/mm3 (0.04-0.40); EOS % 3.2 % (1.0-5.0); HEMATOCRIT 38.5 % (37.0-47.0); HEMOGLOBIN 12.5 g/dL (12.5-16.0); LYMPH# 2.55 K/mm3 (1.50-4.00); MEAN CELL VOLUME 94 fl (78-100); MEAN CORPUSCULAR HEMOGLOBIN 31 pg (27-31); MEAN CORPUSCULAR HGB CONC 33 g/dL (33-37); MEAN PLATELET VOLUME 9.4 fl (7.4-10.4); MONO # 0.91 K/mm3 (0.20-0.80); NEU # 4.59 K/mm3 (1.40-6.50); PLATELET COUNT 296 K/mm3 (130-400); RED CELL DISTRIBUTION WIDTH 12.1 % (11.5-14.5); WHITE BLOOD COUNT 8.4 K/mm3 (4.8-10.8)
[2022-09-12 09:51] LABS: POTASSIUM 4.7 mmol/L (3.5-5.1)
[2022-09-12 09:52] LABS: ALBUMIN 4.1 g/dL (3.4-4.8)
[2022-09-12 09:53] LABS: CALCIUM 10.5 mg/dL (8.3-10.5)
[2022-09-12 09:54] LABS: TOTAL PROTEIN 7.7 g/dL (6.2-8.1)
[2022-09-12 09:56] LABS: TOTAL BILIRUBIN 0.2 mg/dL (0.2-1.2)
== END ==
LOC: LAB 09:16
PROVIDERS: Physician Assistant
DX: E78.2 Mixed hyperlipidemia (principal); E11.9 Type 2 diabetes mellitus without complications; E03.4 Atrophy of thyroid (acquired); K90.9 Intestinal malabsorption, unspecified; J30.2 Other seasonal allergic rhinitis; J02.9 Acute pharyngitis, unspecified; M17.0 Bilateral primary osteoarthritis of knee; M48.50XS Collapsed vertebra, not elsewhere classified, site unspecified, sequela of fracture; M51.36 Other intervertebral disc degeneration, lumbar region; M81.0 Age-related osteoporosis without current pathological fracture; G40.909 Epilepsy, unspecified, not intractable, without status epilepticus; H61.23 Impacted cerumen, bilateral; F41.8 Other specified anxiety disorders; R53.83 Other fatigue; R63.4 Abnormal weight loss

== ENCOUNTER → 2023-07-22 | Outpatient (CLI) | payer MEDICARE | LOC: MAMMO 09:59 | DX: Z12.31 Encounter for screening mammogram for malignant neoplasm of breast (principal) ==

== ENCOUNTER → 2023-11-03 | Outpatient (CLI) | payer MEDICARE ==
[2023-12-23 14:58] LABS: ALBUMIN 4.3 g/dL (3.4-4.8); CALCIUM 9.9 mg/dL (8.3-10.5); MAGNESIUM 2.02 mg/dL (1.60-2.60); TOTAL BILIRUBIN 0.5 mg/dL (0.2-1.2); TOTAL PROTEIN 7.6 g/dL (6.2-8.1)
== END ==
LOC: LAB 12:00
PROVIDERS: Internal Medicine Cardiovascular Disease
DX: M79.89 Other specified soft tissue disorders (principal)

== ENCOUNTER → 2023-11-07 | Outpatient (CLI) | payer MEDICARE ==
[2023-12-29 12:04] LABS: CALCIUM 10.4 mg/dL (8.3-10.5)
== END ==
LOC: LAB 12:09
PROVIDERS: Internal Medicine Cardiovascular Disease
DX: I10 Essential (primary) hypertension (principal)

== ENCOUNTER → 2023-11-14 | Outpatient (CLI) | payer MEDICARE | LOC: RAD 16:14 | DX: R06.02 Shortness of breath (principal) ==

== ENCOUNTER → 2023-12-25 | Outpatient (CLI) | payer MEDICARE ==
[2023-12-25 14:07] LABS: CALCIUM 9.7 mg/dL (8.3-10.5)
[2023-12-25 14:14] LABS: MAGNESIUM 1.97 mg/dL (1.60-2.60)
== END ==
LOC: LAB 13:40
PROVIDERS: Family Medicine
DX: M79.89 Other specified soft tissue disorders (principal)

== ENCOUNTER 2024-05-21 13:50 | Emergency (ER) | payer MEDICARE ==
[~2024-05-21] VITALS: Ht 149.9 cm; Wt 68.7 kg
[2024-05-21 14:48] LABS: BASO # 0.02 K/mm3 (0.02-0.10); EOS # 0.15 K/mm3 (0.04-0.40); EOS % 1.5 % (1.0-5.0); HEMATOCRIT 33.4 % (37.0-47.0); LYMPH# 2.08 K/mm3 (1.50-4.00); MEAN CELL VOLUME 95 fl (78-100); MEAN CORPUSCULAR HEMOGLOBIN 31 pg (27-31); MEAN CORPUSCULAR HGB CONC 33 g/dL (33-37); MEAN PLATELET VOLUME 9.6 fl (7.4-10.4); MONO # 1.03 K/mm3 (0.20-0.80); NEU # 6.72 K/mm3 (1.40-6.50); PLATELET COUNT 208 K/mm3 (130-400); RED CELL DISTRIBUTION WIDTH 12.9 % (11.5-14.5)
[2024-05-21 14:56] LABS: ALBUMIN 3.7 g/dL (3.4-4.8); SODIUM 136 mmol/L (136-145)
[2024-05-21 14:57] LABS: CALCIUM 9.4 mg/dL (8.3-10.5)
[2024-05-21 14:58] LABS: GLUCOSE 106 mg/dL (65-105)
[2024-05-21 14:59] LABS: TOTAL PROTEIN 6.6 g/dL (6.2-8.1)
[2024-05-21 15:00] LABS: CARBON DIOXIDE 25 mmol/L (23-31); TOTAL BILIRUBIN 0.3 mg/dL (0.2-1.2)
[2024-05-21 15:04] LABS: AST-SGOT 16 U/L (5-34)
[2024-05-21 15:05] LABS: ALT/SGPT 11 U/L (0-55)
[2024-05-21 15:15] LABS: TROPONIN-I < 0.030 ng/mL (0.00-0.033)
[2024-05-21 15:30] VITALS: BP 149/64
== END 2024-05-21 15:30 | disposition home or self-care (01) ==
LOC: ED 13:50
PROVIDERS: Family Medicine
DX: I10 Essential (primary) hypertension (principal); R53.83 Other fatigue; Z79.899 Other long term (current) drug therapy

== ENCOUNTER → 2024-08-09 | Outpatient (CLI) | payer MEDICARE ==
[2024-08-09 12:50] LABS: ALBUMIN 3.9 g/dL (3.4-4.8)
[2024-08-09 12:51] LABS: CALCIUM 9.6 mg/dL (8.3-10.5)
[2024-08-09 12:52] LABS: TOTAL PROTEIN 7.4 g/dL (6.2-8.1)
[2024-08-09 12:54] LABS: TOTAL BILIRUBIN 0.4 mg/dL (0.2-1.2)
== END ==
LOC: LAB 12:23
PROVIDERS: Physician Assistant
DX: E11.9 Type 2 diabetes mellitus without complications (principal); R94.4 Abnormal results of kidney function studies

== ENCOUNTER → 2024-09-06 | Outpatient (CLI) | payer MEDICARE | LOC: MAMMO 13:29 | DX: Z12.31 Encounter for screening mammogram for malignant neoplasm of breast (principal); Z13.820 Encounter for screening for osteoporosis; M81.0 Age-related osteoporosis without current pathological fracture ==